=== PATIENT | female | born 1995 | race African-American/Black ===

== ENCOUNTER 2016-12-14 21:29 | Emergency (ER) | payer MEDICAID ==
[~2016-12-14] VITALS: Ht 165.1 cm; Wt 54.4 kg
[2016-12-14] MEDS ORDERED: SODIUM CHLORIDE 0.9% 1,000 ML IV ONE (22:45)
[2016-12-14 22:49] VITALS: BP 107/76
== END 2016-12-14 23:50 | disposition home or self-care (01) ==
LOC: ER 21:31
DX: R51 Headache (principal); R42 Dizziness and giddiness
CPT/HCPCS: 70450; 81025; 96360; 99285; J7030

== ENCOUNTER 2016-12-26 11:29 | Emergency (ER) | payer MEDICAID ==
[~2016-12-26] VITALS: Ht 165.1 cm; Wt 54.4 kg
[2016-12-26 14:12] VITALS: BP 114/77
[2016-12-26] MEDS ORDERED: cefTRIAXone SOD 1,000 MG VL IM ONE (15:00)
== END 2016-12-26 15:35 | disposition home or self-care (01) ==
LOC: ER 11:29
DX: J02.0 Streptococcal pharyngitis (principal)
CPT/HCPCS: 96372; 99283; J0696

== ENCOUNTER 2017-01-11 07:57 | Emergency (ER) | payer MEDICAID ==
[~2017-01-11] VITALS: Ht 165.1 cm; Wt 54.4 kg
[2017-01-11 08:09] VITALS: BP 126/72
== END 2017-01-11 08:40 | disposition home or self-care (01) ==
LOC: ER 07:57
DX: N76.0 Acute vaginitis (principal)

== ENCOUNTER 2017-05-16 22:16 | Emergency (ER) | payer MEDICAID ==
[~2017-05-16] VITALS: Ht 165.1 cm; Wt 64.4 kg
[2017-05-16 22:57] VITALS: BP 128/68
== END 2017-05-17 01:00 | disposition left against medical advice (07) ==
LOC: ER 22:16
DX: R20.0 Anesthesia of skin (principal); Z53.21 Procedure and treatment not carried out due to patient leaving prior to being seen by health care provider

== ENCOUNTER 2017-08-31 19:17 | Emergency (ER) | payer MEDICAID ==
[~2017-08-31] VITALS: Ht 165.1 cm; Wt 54.9 kg
[2017-08-31 19:58] LABS: Eosinophils # (auto) 0 uL; Hemoglobin 9.6 g/dL (12.2-16.2); Lymphocytes # (auto) 1.9 uL; Monocytes # (auto) 0.5 uL; Neutrophils # (auto) 2.9 uL; Nucleated Red Blood Cells % 0.2 %; White Blood Cell 5.4 10^3/uL (4.4-10.8)
[2017-08-31 20:01] LABS: Basophils # (auto) 0.1 uL; Basophils % (auto) 1.2 % (0.0-2.0); Eosinophils % (auto) 0.4 % (0.0-7.0); Hematocrit 30.8 % (36.0-46.0); Lymphocytes % (auto) 35.4 % (10.0-50.0); Mean Corpuscular Hemoglobin 23.4 pg (28.0-32.0); Mean Corpuscular Hgb Conc. 31.2 g/dL (32.0-36.0); Monocytes % (auto) 9.3 % (0.0-12.0); Neutrophils % (auto) 53.7 % (37.0-80.0); Platelet Count (auto) 369 10^3/uL (140-450); Red Blood Cells 4.11 10^6/uL (4.0-5.20)
[2017-08-31 20:08] LABS: Red Cell Distribution Width 25.9 % (11.8-14.3)
[2017-08-31 20:15] LABS: Albumin 3.7 g/dL (3.4-5.0); BUN/Creatinine Ratio 6.2; Calcium 8.4 mg/dL (8.5-10.1); Potassium 3.5 mmol/L (3.5-5.1)
[2017-08-31 20:18] LABS: Bilirubin, Total 0.2 mg/dL (0.2-1.0); Total Protein 8.2 g/dL (6.4-8.2)
[2017-08-31 22:46] VITALS: BP 117/78
== END 2017-08-31 22:42 | disposition home or self-care (01) ==
LOC: ER 19:17
DX: N93.9 Abnormal uterine and vaginal bleeding, unspecified (principal)
CPT/HCPCS: 36415; 76856; 80053; 84702; 85025

== ENCOUNTER 2019-06-12 17:28 | Emergency (ER) | payer MEDICAID ==
[~2019-06-12] VITALS: Ht 165.1 cm; Wt 54.4 kg
[2019-06-12 17:30] VITALS: BP 107/62
[2019-06-12] MEDS ORDERED: cefTRIAXone SOD 1,000 MG VL IM ONE (20:15)
[2019-06-12] MEDS ORDERED: LIDOCAINE 1% HCL (LOCAL ANESTH.) INJ 20ML MDV IJ ONE (20:15)
== END 2019-06-12 21:48 | disposition home or self-care (01) ==
LOC: ER 17:28
DX: L02.416 Cutaneous abscess of left lower limb (principal)
CPT/HCPCS: 10060; 96372; 99283; J0696; J2001

== ENCOUNTER 2021-08-03 02:46 | Emergency (ER) | payer MEDICAID ==
[~2021-08-03] VITALS: Ht 165.1 cm; Wt 54.4 kg
[2021-08-03 02:49] VITALS: BP 116/85
== END 2021-08-03 03:44 | disposition home or self-care (01) ==
LOC: ER 02:46
DX: R59.9 Enlarged lymph nodes, unspecified (principal)